=== PATIENT | female | born 1965 | race Caucasian/White ===

== ENCOUNTER 2019-05-15 00:34 | Emergency (ER) | payer OTHER ==
[~2019-05-15] VITALS: Ht 170.2 cm; Wt 81.6 kg
[2019-05-15] MEDS ORDERED: ZYRTEC10 M5 PO (00:45)
[2019-05-15] MEDS ORDERED: IBUPROFEN 600600 M1 PO (00:45)
[2019-05-15] MEDS ORDERED: ESTRACE0.5 MG PO (00:46)
[2019-05-15 01:53] LABS: ABSOLUTE BASOPHILS 0.1 thou/uL (0.0-0.2); ABSOLUTE EOSINOPHILS 0.1 thou/uL (0.0-0.7); ABSOLUTE LYMPHOCYTES 1.2 thou/uL (0.8-5.3); ABSOLUTE MONOCYTES 1.1 thou/uL (0.0-1.2); ABSOLUTE NEUTROPHILS 13.5 thou/uL (1.6-8.1); BASOPHILS 0.3 %; EOSINOPHILS 0.3 %; HEMATOCRIT 43.6 % (37.0-47.0); HEMOGLOBIN 14.7 gm/dL (12.0-15.0); LYMPHOCYTES 7.4 %; MCH 29.4 pg (26.0-34.0); MCHC 33.6 g/dL (28.0-37.0); MCV 87.4 fL (80.0-100.0); MONOCYTES 6.7 %; MPV 6.7 fl. (7.2-11.1); NUCLEATED RBCS 0 /100WBC; PLATELET COUNT* 247 thou/uL (150-400); POLYS 85.3 %; RBC 4.99 mil/uL (4.20-5.00); RDW-CV 12.6 % (10.5-14.5); WBC 15.8 thou/uL (4.0-11.0)
[2019-05-15 02:10] LABS: CALCIUM 10.1 mg/dL (8.5-10.1); CREATININE 0.9 mg/dL (0.6-1.3); POTASSIUM 4.1 mmol/L (3.5-5.1)
[2019-05-15 02:15] LABS: ALBUMIN 3.7 g/dL (3.4-5.0); TOTAL BILIRUBIN 1.6 mg/dL (<0.1-1.0); TOTAL PROTEIN 7.1 g/dL (6.4-8.2)
[2019-05-15] MEDS ORDERED: AUGMENTIN 875-1 EACH PO (03:14)
[2019-05-15] MEDS ORDERED: PERCOCET 5-3251 EACH PO (03:14)
[2019-05-15 03:25] VITALS: BP 139/68
== END 2019-05-15 03:26 | disposition home or self-care (01) ==
LOC: M.ERS 00:34
PROVIDERS: Emergency Medicine Emergency Medical Services
DX: K08.89 Other specified disorders of teeth and supporting structures (principal); M54.2 Cervicalgia; Z91.041 Radiographic dye allergy status; Z88.5 Allergy status to narcotic agent; Z88.8 Allergy status to other drugs, medicaments and biological substances; Z87.442 Personal history of urinary calculi; Z90.711 Acquired absence of uterus with remaining cervical stump